=== PATIENT | male | born 1935 | race Caucasian/White ===

== ENCOUNTER 2018-06-05 05:08 | Inpatient (IN) | payer MEDICARE, MEDICAID ==
[~2018-06-05] VITALS: Ht 170.2 cm; Wt 92.9 kg
[2018-06-05] MEDS ORDERED: OMEP-110 PO (05:15)
[2018-06-05] MEDS ORDERED: MAALOX/HYOSCYAMINE/LIDOCAINE 45 ML BTL ONE (05:29)
[2018-06-05] MEDS ORDERED: FAMOTIDINE 20 MG/2 ML ONE (05:29)
[2018-06-05] MEDS ORDERED: FAMOTIDINE 20 MG/2 ML IVP ONE (05:30)
[2018-06-05] MEDS ORDERED: SODIUM CHLORIDE FLUSH 10ML SYR IVF ONE (05:30)
[2018-06-05] MEDS ORDERED: MAALOX/HYOSCYAMINE/LIDOCAINE 45 ML BTL PO ONE (05:30)
[2018-06-05] MEDS ORDERED: HYDROmorphone 2 MG/ML, 1ML ONE (05:56)
[2018-06-05 05:57] LABS: BASOPHILS # (AUTO) 0.05 x10^3/uL (0-0.1); BASOPHILS % (AUTO) 0 % (0-1); EOSINOPHILS # (AUTO) 0.17 x10^3/uL (0-0.4); EOSINOPHILS % (AUTO) 1 % (1-7); LYMPHOCYTES # (AUTO) 2.67 x10^3/uL (1-3.4); LYMPHOCYTES % (AUTO) 22 % (22-44); MD NO; MEAN CORPUSCULAR HEMOGLOBIN 24.1 pg (27.5-34.5); MEAN CORPUSCULAR HGB CONC 32.3 g/dL (33.2-36.2); MEAN CORPUSCULAR VOLUME 74.8 fL (81-97); MEAN PLATELET VOLUME 10.3 fL (7.4-10.4); MONOCYTES # (AUTO) 0.69 x10^3/uL (0.2-0.8); MONOCYTES % (AUTO) 6 % (2-9); NEUTROPHILS # (AUTO) 8.55 x10^3/uL (1.8-6.8); NEUTROPHILS % (AUTO) 71 % (42-75); PLATELET COUNT 336 x10^3/uL (130-400); RED BLOOD COUNT 5.02 x10^6/uL (4.38-5.82); RED CELL DISTRIBUTION WIDTH 19.7 % (9.4-14.8)
[2018-06-05] MEDS ORDERED: HYDROmorphone 2 MG/ML, 1ML IVPush PRN (06:00)
[2018-06-05 06:10] LABS: ALANINE AMINOTRANSFERASE 18 U/L (12-78); ANION GAP 8 mmol/L (5-15); CHLORIDE 105 mmol/L (98-107); CREATININE 1.59 mg/dL (0.7-1.3)
[2018-06-05 06:12] LABS: ALKALINE PHOSPHATASE 75 U/L (45-117); BILIRUBIN,TOTAL 0.7 mg/dL (0.2-1.0); TOTAL PROTEIN 8.4 g/dL (6.4-8.2)
[2018-06-05] MEDS ORDERED: SODIUM CHLORIDE 0.9% 1,000 ML IV ONE (06:28)
[2018-06-05] MEDS ORDERED: LABETALOL 5MG/ML, 20ML IVPush STA (06:39)
[2018-06-05] MEDS ORDERED: LABETALOL 5MG/ML, 20ML ONE (06:58)
[2018-06-05 07:46] VITALS: BP 153/93
[2018-06-05] MEDS ORDERED: morphine SULFATE 10 MG/ML, 1ML IVPush PRN (08:00)
[2018-06-05] MEDS ORDERED: ONDANSETRON 2MG/ML, 2ML IVPush PRN (08:00)
[2018-06-05] MEDS ORDERED: ONDANSETRON ODT 4 MG PO PRN (08:00)
[2018-06-05] MEDS: SUCRALFATE 1 GM/10 ML UDC PO SCH ×4 (08:00→23:15)
[2018-06-05] MEDS: PANTOPRAZOLE 40 MG IV IVPush SCH ×2 (10:44→23:16)
[2018-06-05] MEDS: HEPARIN 5,000 UNITS/ML, 1ML SQ SCH ×2 (10:45→17:13)
[2018-06-05] MEDS: IRON SUCROSE COMPLEX 100MG/5ML IV SCH (13:18)
[2018-06-05 13:23] VITALS: BP 144/97
[2018-06-05] MEDS: SODIUM CHLORIDE 0.9% 1,000 ML IV SCH ×2 (14:06→21:17)
[2018-06-05] MEDS: ACETAMINOPHEN 325 MG TABLET PO PRN (15:29)
[2018-06-05 19:32] VITALS: BP 146/84
[2018-06-06] MEDS: HEPARIN 5,000 UNITS/ML, 1ML SQ SCH ×4 (00:45→23:25)
[2018-06-06 01:11] VITALS: BP 156/97
[2018-06-06 06:05] LABS: BASOPHILS # (AUTO) 0.04 x10^3/uL (0-0.1); BASOPHILS % (AUTO) 1 % (0-1); EOSINOPHILS # (AUTO) 0.47 x10^3/uL (0-0.4); EOSINOPHILS % (AUTO) 7 % (1-7); LYMPHOCYTES # (AUTO) 2.34 x10^3/uL (1-3.4); LYMPHOCYTES % (AUTO) 33 % (22-44); MD NO; MEAN CORPUSCULAR HEMOGLOBIN 24.7 pg (27.5-34.5); MEAN CORPUSCULAR HGB CONC 32.3 g/dL (33.2-36.2); MEAN CORPUSCULAR VOLUME 76.5 fL (81-97); MEAN PLATELET VOLUME 10.1 fL (7.4-10.4); MONOCYTES # (AUTO) 0.53 x10^3/uL (0.2-0.8); MONOCYTES % (AUTO) 8 % (2-9); NEUTROPHILS # (AUTO) 3.68 x10^3/uL (1.8-6.8); NEUTROPHILS % (AUTO) 52 % (42-75); PLATELET COUNT 255 x10^3/uL (130-400); RED BLOOD COUNT 3.91 x10^6/uL (4.38-5.82); RED CELL DISTRIBUTION WIDTH 19.5 % (9.4-14.8)
[2018-06-06 06:07] LABS: ALBUMIN 2.9 g/dL (3.4-5.0); ANION GAP 10 mmol/L (5-15); CALCIUM 7.3 mg/dL (8.5-10.1); CHLORIDE 111 mmol/L (98-107)
[2018-06-06 06:19] LABS: ALANINE AMINOTRANSFERASE 14 U/L (12-78); ALKALINE PHOSPHATASE 55 U/L (45-117); BILIRUBIN,TOTAL 0.6 mg/dL (0.2-1.0); CHOL/HDL RATIO 2.1; CHOLESTEROL, TOTAL 96 mg/dL (140-239); CREATININE 1.26 mg/dL (0.7-1.3); HDL CHOL % 47 % (26-37); HDL CHOLESTEROL (DIRECT) 45 mg/dL (40-60); LDL CHOLESTEROL,CALCULATED 33 mg/dL (54-169); LDL/HDL RATIO 0.7 (0.5-3.0); TOTAL PROTEIN 6.1 g/dL (6.4-8.2); TRIGLYCERIDES 90 mg/dL (50-200); VLDL CHOLESTEROL 18 mg/dL (0-25)
[2018-06-06] MEDS: SUCRALFATE 1 GM/10 ML UDC PO SCH ×4 (06:56→21:26)
[2018-06-06] MEDS: SODIUM CHLORIDE 0.9% 1,000 ML IV SCH (07:32)
[2018-06-06 07:59] VITALS: BP 165/94
[2018-06-06] MEDS: PANTOPRAZOLE 40 MG IV IVPush SCH ×2 (11:02→21:26)
[2018-06-06] MEDS: IRON SUCROSE COMPLEX 100MG/5ML IV SCH (11:02)
[2018-06-06 13:40] VITALS: BP 147/84
[2018-06-06 19:11] VITALS: BP 152/79
[2018-06-07 02:01] VITALS: BP 150/85
[2018-06-07 07:23] LABS: BASOPHILS # (AUTO) 0.12 x10^3/uL (0-0.1); BASOPHILS % (AUTO) 2 % (0-1); EOSINOPHILS # (AUTO) 0.33 x10^3/uL (0-0.4); EOSINOPHILS % (AUTO) 4 % (1-7); LYMPHOCYTES # (AUTO) 2.21 x10^3/uL (1-3.4); LYMPHOCYTES % (AUTO) 27 % (22-44); MD NO; MEAN CORPUSCULAR HEMOGLOBIN 24.2 pg (27.5-34.5); MEAN CORPUSCULAR HGB CONC 31.8 g/dL (33.2-36.2); MEAN CORPUSCULAR VOLUME 75.9 fL (81-97); MEAN PLATELET VOLUME 9.7 fL (7.4-10.4); MONOCYTES # (AUTO) 0.58 x10^3/uL (0.2-0.8); MONOCYTES % (AUTO) 7 % (2-9); NEUTROPHILS # (AUTO) 4.88 x10^3/uL (1.8-6.8); NEUTROPHILS % (AUTO) 60 % (42-75); PLATELET COUNT 251 x10^3/uL (130-400); RED BLOOD COUNT 3.79 x10^6/uL (4.38-5.82); RED CELL DISTRIBUTION WIDTH 19.5 % (9.4-14.8)
[2018-06-07 07:44] VITALS: BP 163/91
[2018-06-07 08:25] LABS: CULTURE INDICATED? NO; MICROSCOPIC NOT IND
[2018-06-07] MEDS: SUCRALFATE 1 GM/10 ML UDC PO SCH ×4 (08:31→19:16)
[2018-06-07] MEDS: HEPARIN 5,000 UNITS/ML, 1ML SQ SCH ×3 (08:31→23:28)
[2018-06-07] MEDS: IRON SUCROSE COMPLEX 100MG/5ML IV SCH (08:31)
[2018-06-07] MEDS: PANTOPRAZOLE 40 MG IV IVPush SCH (08:32)
[2018-06-07] MEDS: SODIUM CHLORIDE 0.9% 1,000 ML IV SCH ×2 (09:00→21:33)
[2018-06-07 15:49] VITALS: BP 174/95
[2018-06-07] MEDS: PANTOPROZOLE 40MG TABLET PO SCH (19:16)
[2018-06-07 19:53] VITALS: BP 175/92
[2018-06-07 21:00] VITALS: BP 186/76
[2018-06-07] MEDS ORDERED: hydrALAzine 20 MG/ML, 1ML IVPush PRN (21:30)
[2018-06-08] MEDS: ACETAMINOPHEN 325 MG TABLET PO PRN ×3 (02:14→11:51)
[2018-06-08 02:15] VITALS: BP 188/98
[2018-06-08] MEDS: hydrALAzine 20 MG/ML, 1ML IVPush PRN ×2 (02:40→14:11)
[2018-06-08 07:47] VITALS: BP 162/109
[2018-06-08] MEDS: SUCRALFATE 1 GM/10 ML UDC PO SCH ×4 (08:03→21:11)
[2018-06-08] MEDS: LISINOPRIL 20 MG TABLET PO SCH (08:04)
[2018-06-08] MEDS: PANTOPROZOLE 40MG TABLET PO SCH ×2 (08:04→21:11)
[2018-06-08] MEDS: HEPARIN 5,000 UNITS/ML, 1ML SQ SCH (08:04)
[2018-06-08 08:10] LABS: ALANINE AMINOTRANSFERASE 14 U/L (12-78); ALBUMIN 3.8 g/dL (3.4-5.0); ANION GAP 9 mmol/L (5-15); CALCIUM 8.7 mg/dL (8.5-10.1); CHLORIDE 110 mmol/L (98-107); CREATININE 1.28 mg/dL (0.7-1.3)
[2018-06-08 08:13] LABS: ALKALINE PHOSPHATASE 71 U/L (45-117); BILIRUBIN,TOTAL 0.5 mg/dL (0.2-1.0); TOTAL PROTEIN 7.7 g/dL (6.4-8.2)
[2018-06-08 08:18] LABS: HEMOGRAM NOTE RECHECKED; MEAN CORPUSCULAR HEMOGLOBIN 23.6 pg (27.5-34.5); MEAN CORPUSCULAR HGB CONC 31.1 g/dL (33.2-36.2); MEAN CORPUSCULAR VOLUME 75.9 fL (81-97); MEAN PLATELET VOLUME 10.1 fL (7.4-10.4); PLATELET COUNT 310 x10^3/uL (130-400); RED CELL DISTRIBUTION WIDTH 19.7 % (9.4-14.8)
[2018-06-08 08:28] LABS: MD YES
[2018-06-08 08:30] LABS: ANISOCYTOSIS 1+; BAND#(MANUAL) 0.19 x10^3/uL; BANDS%(MANUAL) 2 % (0-7); BASOS#(MANUAL) 0.09 x10^3/uL (0-0.1); BASOS% (MANUAL) 1 % (0-1); EOS#(MANUAL) 0.28 x10^3/uL (0.0-0.4); EOS% (MANUAL) 3 % (1-7); LYMPH#(MANUAL) 2.05 x10^3/uL (1-3.4); LYMPHS% (MANUAL) 22 % (22-44); MONOS#(MANUAL) 0.56 x10^3/uL (0.3-2.7); MONOS% (MANUAL) 6 % (2-9); SEG#(MANUAL) 6.14 x10^3/uL (1.8-6.8); SEGS% (MANUAL) 66 % (42-75)
[2018-06-08 08:31] LABS: <PLATELET ESTIMATE> ADEQUATE; LARGE PLATELETS 1+; POLYCHROMASIA 1+
[2018-06-08 11:45] VITALS: BP 140/90
[2018-06-08 13:54] VITALS: BP 182/92
[2018-06-08] MEDS ORDERED: METOCLOPRAMIDE 5 MG/ML, 2ML IVPush ONE (16:30)
[2018-06-08] MEDS ORDERED: DIPHENHYDRAMINE 50 MG/ML, 1ML IVPush ONE (16:30)
[2018-06-08] MEDS: FERROUS SULFATE 325 MG TABLET PO SCH (16:31)
[2018-06-08] MEDS: ASCORBIC ACID 500 MG TABLET PO SCH (16:31)
[2018-06-08 19:45] VITALS: BP 163/99
[2018-06-09 02:45] VITALS: BP 142/95
[2018-06-09 07:38] VITALS: BP 165/101
[2018-06-09] MEDS: ASCORBIC ACID 500 MG TABLET PO SCH ×2 (08:00→17:00)
[2018-06-09] MEDS: SUCRALFATE 1 GM/10 ML UDC PO SCH ×4 (10:17→21:46)
[2018-06-09] MEDS: LISINOPRIL 20 MG TABLET PO SCH (10:17)
[2018-06-09] MEDS: PANTOPROZOLE 40MG TABLET PO SCH ×2 (10:17→21:46)
[2018-06-09] MEDS: FERROUS SULFATE 325 MG TABLET PO SCH ×2 (10:18→17:00)
[2018-06-09 13:35] VITALS: BP 142/99
[2018-06-09 19:37] VITALS: BP 134/92
[2018-06-10 03:34] VITALS: BP 171/98
[2018-06-10 08:25] VITALS: BP 164/93
[2018-06-10] MEDS: ASCORBIC ACID 500 MG TABLET PO SCH ×2 (08:34→17:25)
[2018-06-10] MEDS: SUCRALFATE 1 GM/10 ML UDC PO SCH ×4 (08:34→21:22)
[2018-06-10] MEDS: PANTOPROZOLE 40MG TABLET PO SCH ×2 (08:35→21:22)
[2018-06-10] MEDS: LISINOPRIL 20 MG TABLET PO SCH (08:35)
[2018-06-10] MEDS: FERROUS SULFATE 325 MG TABLET PO SCH ×2 (08:35→17:25)
[2018-06-10] MEDS: ACETAMINOPHEN 325 MG TABLET PO PRN (08:35)
[2018-06-10] MEDS: AMLODIPINE 5 MG TABLET PO SCH (08:35)
[2018-06-10 13:40] VITALS: BP 160/103
[2018-06-10 21:14] VITALS: BP 133/81
[2018-06-11 01:48] VITALS: BP 131/69
[2018-06-11 07:40] VITALS: BP 162/101
[2018-06-11] MEDS: SUCRALFATE 1 GM/10 ML UDC PO SCH ×4 (07:59→20:35)
[2018-06-11] MEDS: ASCORBIC ACID 500 MG TABLET PO SCH ×2 (08:01→16:52)
[2018-06-11] MEDS: PANTOPROZOLE 40MG TABLET PO SCH ×2 (08:01→20:35)
[2018-06-11] MEDS: LISINOPRIL 20 MG TABLET PO SCH (08:01)
[2018-06-11] MEDS: AMLODIPINE 5 MG TABLET PO SCH (08:01)
[2018-06-11] MEDS: FERROUS SULFATE 325 MG TABLET PO SCH ×2 (08:01→16:52)
[2018-06-11 13:15] VITALS: BP 123/82
[2018-06-11 19:38] VITALS: BP 131/83
[2018-06-12 02:08] VITALS: BP 138/81
[2018-06-12 06:40] VITALS: BP 144/81
[2018-06-12] MEDS: SUCRALFATE 1 GM/10 ML UDC PO SCH ×4 (08:30→20:23)
[2018-06-12] MEDS: LISINOPRIL 20 MG TABLET PO SCH (08:30)
[2018-06-12] MEDS: ASCORBIC ACID 500 MG TABLET PO SCH ×2 (08:31→16:08)
[2018-06-12] MEDS: FERROUS SULFATE 325 MG TABLET PO SCH ×2 (08:31→16:08)
[2018-06-12] MEDS: PANTOPROZOLE 40MG TABLET PO SCH ×2 (08:31→20:23)
[2018-06-12] MEDS: AMLODIPINE 5 MG TABLET PO SCH (08:31)
[2018-06-12 12:22] VITALS: BP 150/86
[2018-06-12 20:05] VITALS: BP 139/89
[2018-06-13 01:01] VITALS: BP 138/79
[2018-06-13 06:38] VITALS: BP 129/77
[2018-06-13] MEDS: SUCRALFATE 1 GM/10 ML UDC PO SCH ×4 (06:49→22:14)
[2018-06-13] MEDS: AMLODIPINE 5 MG TABLET PO SCH (08:31)
[2018-06-13] MEDS: PANTOPROZOLE 40MG TABLET PO SCH ×2 (08:31→22:14)
[2018-06-13] MEDS: FERROUS SULFATE 325 MG TABLET PO SCH ×2 (08:31→17:09)
[2018-06-13] MEDS: ASCORBIC ACID 500 MG TABLET PO SCH ×2 (08:31→17:09)
[2018-06-13] MEDS: LISINOPRIL 20 MG TABLET PO SCH (08:31)
[2018-06-13] MEDS: ACETAMINOPHEN 325 MG TABLET PO PRN (10:36)
[2018-06-13 12:32] VITALS: BP 130/87
[2018-06-13 20:35] VITALS: BP 123/74
[2018-06-14 00:15] VITALS: BP 132/85
[2018-06-14 05:09] LABS: ANION GAP 8 mmol/L (5-15); CALCIUM 8.2 mg/dL (8.5-10.1); CHLORIDE 109 mmol/L (98-107); CREATININE 1.41 mg/dL (0.7-1.3)
[2018-06-14 05:48] LABS: MEAN CORPUSCULAR HEMOGLOBIN 25.1 pg (27.5-34.5); MEAN CORPUSCULAR HGB CONC 32.1 g/dL (33.2-36.2); MEAN CORPUSCULAR VOLUME 78.1 fL (81-97); MEAN PLATELET VOLUME 10.7 fL (7.4-10.4); PLATELET COUNT 277 x10^3/uL (130-400); RED BLOOD COUNT 4.39 x10^6/uL (4.38-5.82); RED CELL DISTRIBUTION WIDTH 22.1 % (9.4-14.8)
[2018-06-14 05:52] LABS: BASOPHILS # (AUTO) 0.05 x10^3/uL (0-0.1); BASOPHILS % (AUTO) 1 % (0-1); EOSINOPHILS # (AUTO) 0.38 x10^3/uL (0-0.4); EOSINOPHILS % (AUTO) 4 % (1-7); LYMPHOCYTES # (AUTO) 2.43 x10^3/uL (1-3.4); LYMPHOCYTES % (AUTO) 28 % (22-44); MD SCAN; MONOCYTES # (AUTO) 0.72 x10^3/uL (0.2-0.8); MONOCYTES % (AUTO) 8 % (2-9); NEUTROPHILS # (AUTO) 5.09 x10^3/uL (1.8-6.8); NEUTROPHILS % (AUTO) 59 % (42-75)
[2018-06-14 09:30] VITALS: BP 120/84
[2018-06-14] MEDS: SUCRALFATE 1 GM/10 ML UDC PO SCH ×4 (10:05→22:17)
[2018-06-14] MEDS: LISINOPRIL 20 MG TABLET PO SCH (10:05)
[2018-06-14] MEDS: ASCORBIC ACID 500 MG TABLET PO SCH ×2 (10:06→17:35)
[2018-06-14] MEDS: AMLODIPINE 5 MG TABLET PO SCH (10:06)
[2018-06-14] MEDS: PANTOPROZOLE 40MG TABLET PO SCH ×2 (10:06→22:17)
[2018-06-14] MEDS: FERROUS SULFATE 325 MG TABLET PO SCH ×2 (10:06→17:35)
[2018-06-14 14:30] VITALS: BP 121/84
[2018-06-14 21:08] VITALS: BP 113/75
[2018-06-15 05:31] LABS: ANION GAP 10 mmol/L (5-15); CALCIUM 8.3 mg/dL (8.5-10.1); CHLORIDE 111 mmol/L (98-107)
[2018-06-15 05:32] LABS: CREATININE 1.37 mg/dL (0.7-1.3)
[2018-06-15] MEDS: SUCRALFATE 1 GM/10 ML UDC PO SCH ×4 (06:59→20:19)
[2018-06-15 07:04] VITALS: BP 126/78
[2018-06-15 09:33] VITALS: BP 127/80
[2018-06-15] MEDS: FERROUS SULFATE 325 MG TABLET PO SCH ×2 (09:36→16:47)
[2018-06-15] MEDS: ASCORBIC ACID 500 MG TABLET PO SCH ×2 (09:37→16:46)
[2018-06-15] MEDS: PANTOPROZOLE 40MG TABLET PO SCH ×2 (09:37→20:19)
[2018-06-15] MEDS: AMLODIPINE 5 MG TABLET PO SCH (09:37)
[2018-06-15] MEDS: LISINOPRIL 20 MG TABLET PO SCH (09:37)
[2018-06-15 14:14] VITALS: BP 119/81
[2018-06-15] MEDS: ACETAMINOPHEN 325 MG TABLET PO PRN (14:42)
[2018-06-15 18:49] VITALS: BP 142/86
[2018-06-16 02:59] VITALS: BP 122/75
[2018-06-16 07:52] VITALS: BP 131/78
[2018-06-16] MEDS: FERROUS SULFATE 325 MG TABLET PO SCH (09:04)
[2018-06-16] MEDS: AMLODIPINE 5 MG TABLET PO SCH (09:04)
[2018-06-16] MEDS: LISINOPRIL 20 MG TABLET PO SCH (09:05)
[2018-06-16] MEDS: PANTOPROZOLE 40MG TABLET PO SCH (09:05)
[2018-06-16] MEDS: SUCRALFATE 1 GM/10 ML UDC PO SCH ×2 (09:05→12:26)
[2018-06-16] MEDS: ASCORBIC ACID 500 MG TABLET PO SCH (09:05)
[2018-06-16 14:30] VITALS: BP 121/78
[2018-06-16] MEDS ORDERED: ASCO500T6 PO (17:03)
[2018-06-16] MEDS ORDERED: LISI-170 PO (17:03)
[2018-06-16] MEDS ORDERED: AMLO5TAB7 PO (17:03)
[2018-06-16] MEDS ORDERED: ACET325T14 PO (17:03)
[2018-06-16] MEDS ORDERED: PANT40TA5 PO (17:03)
[2018-06-16] MEDS ORDERED: SUCR1ORA5 PO (17:03)
[2018-06-16] MEDS ORDERED: FERR-51 PO (17:03)
== END 2018-06-16 16:03 | disposition left against medical advice (07) | DRG 682 ==
LOC: ED 07:17 → EDIP 07:24 → 3NE 07:43
PROVIDERS: ADMIT Hospitalist; ATTEND Hospitalist
DX: N17.0 Acute kidney failure with tubular necrosis (principal); G93.40 Encephalopathy, unspecified; K25.9 Gastric ulcer, unspecified as acute or chronic, without hemorrhage or perforation; G89.29 Other chronic pain; I10 Essential (primary) hypertension; K21.9 Gastro-esophageal reflux disease without esophagitis; F09 Unspecified mental disorder due to known physiological condition; F03.90 Unspecified dementia, unspecified severity, without behavioral disturbance, psychotic disturbance, mood disturbance, and anxiety; D50.9 Iron deficiency anemia, unspecified; F12.90 Cannabis use, unspecified, uncomplicated; D72.829 Elevated white blood cell count, unspecified; E86.0 Dehydration; Z90.49 Acquired absence of other specified parts of digestive tract; Z53.21 Procedure and treatment not carried out due to patient leaving prior to being seen by health care provider; Z90.89 Acquired absence of other organs; Z87.891 Personal history of nicotine dependence; Z86.73 Personal history of transient ischemic attack (TIA), and cerebral infarction without residual deficits; Z87.11 Personal history of peptic ulcer disease
CPT/HCPCS: 36415; 70450; 74021; 76700; 80048; 80053; 80061; 81003; 82728; 83540; 83550; 83690; 83735; 84100; 84443; 85025; 86677; 93005; 96374; 96375; 99285; G0378; J1170; J1644; J1756; 92523-GN; C9113; G0515-GN; J0360; J1200; J2765; J7030; S0028

== ENCOUNTER 2018-07-13 14:13 | Inpatient (IN) | payer MEDICARE, MEDICAID ==
[~2018-07-13] VITALS: Ht 170.2 cm; Wt 90.4 kg
[~2018-07-13 14:13] MED LIST: ACET325T14 PO; AMLO5TAB7 PO; ASCO500T6 PO; FERR-51 PO; LISI-170 PO; OMEP-110 PO; PANT40TA5 PO; SUCR1ORA5 PO
[2018-07-13] MEDS ORDERED: SODIUM CHLORIDE FLUSH 10ML SYR IVF ONE (15:00)
[2018-07-13 15:43] LABS: MEAN CORPUSCULAR HEMOGLOBIN 25.8 pg (27.5-34.5); MEAN CORPUSCULAR HGB CONC 32.1 g/dL (33.2-36.2); MEAN CORPUSCULAR VOLUME 80.6 fL (81-97); MEAN PLATELET VOLUME 10.1 fL (7.4-10.4); PLATELET COUNT 333 x10^3/uL (130-400); RED BLOOD COUNT 4.86 x10^6/uL (4.38-5.82); RED CELL DISTRIBUTION WIDTH 22.4 % (9.4-14.8)
[2018-07-13 15:53] LABS: ALANINE AMINOTRANSFERASE 19 U/L (12-78); ALBUMIN 3.8 g/dL (3.4-5.0); ANION GAP 9 mmol/L (5-15); CALCIUM 8.8 mg/dL (8.5-10.1); CHLORIDE 110 mmol/L (98-107); CREATININE 1.88 mg/dL (0.7-1.3)
[2018-07-13 15:55] LABS: ALKALINE PHOSPHATASE 70 U/L (45-117); BILIRUBIN,TOTAL 0.5 mg/dL (0.2-1.0); TOTAL PROTEIN 7.7 g/dL (6.4-8.2)
[2018-07-13 16:07] LABS: BASOPHILS # (AUTO) 0.05 x10^3/uL (0-0.1); BASOPHILS % (AUTO) 0 % (0-1); EOSINOPHILS # (AUTO) 0.09 x10^3/uL (0-0.4); EOSINOPHILS % (AUTO) 1 % (1-7); LYMPHOCYTES # (AUTO) 2.18 x10^3/uL (1-3.4); LYMPHOCYTES % (AUTO) 19 % (22-44); MD SCAN; MONOCYTES # (AUTO) 0.56 x10^3/uL (0.2-0.8); MONOCYTES % (AUTO) 5 % (2-9); NEUTROPHILS # (AUTO) 8.58 x10^3/uL (1.8-6.8); NEUTROPHILS % (AUTO) 75 % (42-75)
[2018-07-13] MEDS ORDERED: SUCR1TAB PO (16:16)
[2018-07-13] MEDS ORDERED: MAALOX/HYOSCYAMINE/LIDOCAINE 45 ML BTL PO ONE (16:30)
[2018-07-13] MEDS ORDERED: MAALOX/HYOSCYAMINE/LIDOCAINE 45 ML BTL ONE (16:51)
[2018-07-13 17:24] LABS: MICROSCOPIC NOT IND
[2018-07-13 17:26] LABS: CULTURE INDICATED? NO
[2018-07-13] MEDS ORDERED: CIPROFLOXACIN/PMX 400MG/200ML 200 ML ONE (19:20)
[2018-07-13] MEDS ORDERED: ONDANSETRON 2MG/ML, 2ML ONE (19:20)
[2018-07-13] MEDS ORDERED: METRONIDAZOLE PMX 500MG/100ML 100 ML ONE (19:20)
[2018-07-13] MEDS ORDERED: MORPHINE SULFATE 4 MG/ML, 1ML ONE ×2 (19:21→20:22)
[2018-07-13] MEDS ORDERED: ONDANSETRON 2MG/ML, 2ML IVPush ONE (19:30)
[2018-07-13] MEDS ORDERED: METRONIDAZOLE PMX 500MG/100ML 100 ML IV ONE (19:30)
[2018-07-13] MEDS ORDERED: MORPHINE SULFATE 4 MG/ML, 1ML IVPush PRN (19:30)
[2018-07-13] MEDS ORDERED: CIPROFLOXACIN/PMX 400MG/200ML 200 ML IV ONE (19:30)
[2018-07-13] MEDS ORDERED: hydrALAzine 20 MG/ML, 1ML IVPush PRN (20:00)
[2018-07-13] MEDS ORDERED: PHARMACY MAY ADJ FOR RENAL FX MC PRN (20:00)
[2018-07-13] MEDS ORDERED: ONDANSETRON ODT 4 MG PO PRN (20:00)
[2018-07-13] MEDS ORDERED: DOCUSATE 100 MG CAPSULE PO PRN (20:00)
[2018-07-13] MEDS: SODIUM CHLORIDE 0.9% 1,000 ML IV SCH (21:07)
[2018-07-13 21:30] VITALS: BP 157/94
[2018-07-13] MEDS: TEMAZEPAM 15 MG CAPSULE PO PRN (21:50)
[2018-07-13] MEDS: SIMETHICONE 125 MG CHEW TAB PO SCH (21:50)
[2018-07-13] MEDS: CIPROFLOXACIN/PMX 400MG/200ML 200 ML IV SCH (21:50)
[2018-07-14] MEDS: METRONIDAZOLE PMX 500MG/100ML 100 ML IV SCH ×4 (01:48→21:16)
[2018-07-14 03:21] VITALS: BP 153/92
[2018-07-14 06:13] LABS: MEAN CORPUSCULAR HEMOGLOBIN 26.6 pg (27.5-34.5); MEAN CORPUSCULAR VOLUME 80.7 fL (81-97); MEAN PLATELET VOLUME 9.6 fL (7.4-10.4); PLATELET COUNT 270 x10^3/uL (130-400); RED BLOOD COUNT 4.22 x10^6/uL (4.38-5.82); RED CELL DISTRIBUTION WIDTH 22.1 % (9.4-14.8)
[2018-07-14 06:44] LABS: BASOPHILS # (AUTO) 0.04 x10^3/uL (0-0.1); BASOPHILS % (AUTO) 1 % (0-1); EOSINOPHILS % (AUTO) 5 % (1-7); LYMPHOCYTES # (AUTO) 2.11 x10^3/uL (1-3.4); LYMPHOCYTES % (AUTO) 27 % (22-44); MD SCAN; MONOCYTES # (AUTO) 0.65 x10^3/uL (0.2-0.8); MONOCYTES % (AUTO) 8 % (2-9); NEUTROPHILS # (AUTO) 4.56 x10^3/uL (1.8-6.8); NEUTROPHILS % (AUTO) 59 % (42-75)
[2018-07-14 07:24] VITALS: BP 150/88
[2018-07-14] MEDS ORDERED: CIPROFLOXACIN/PMX 400MG/200ML 200 ML IV SCH (08:00)
[2018-07-14] MEDS: SIMETHICONE 125 MG CHEW TAB PO SCH ×4 (08:19→20:27)
[2018-07-14] MEDS: SODIUM CHLORIDE 0.9% 1,000 ML IV SCH ×2 (08:19→20:26)
[2018-07-14 10:32] LABS: ANION GAP 6 mmol/L (5-15); CALCIUM 8.4 mg/dL (8.5-10.1); CHLORIDE 110 mmol/L (98-107); CREATININE 1.52 mg/dL (0.7-1.3)
[2018-07-14] MEDS: CIPROFLOXACIN/PMX 400MG/200ML 200 ML IV SCH ×2 (10:32→22:23)
[2018-07-14] MEDS ORDERED: GOLYTELY 4,000ML ORAL.SOL PO ONE (14:00)
[2018-07-14 14:22] VITALS: BP_SYST 148; BP_SYST 150; BP_DIAS 71; BP_DIAS 88
[2018-07-14] MEDS: PANTOPROZOLE 40MG TABLET PO SCH (16:04)
[2018-07-14] MEDS ORDERED: GOLYTELY 4,000ML ORAL.SOL ONE (18:23)
[2018-07-14 19:44] VITALS: BP 136/71
[2018-07-14] MEDS: TEMAZEPAM 15 MG CAPSULE PO PRN (23:19)
[2018-07-15 00:14] VITALS: BP 133/79
[2018-07-15] MEDS: METRONIDAZOLE PMX 500MG/100ML 100 ML IV SCH ×4 (02:39→21:00)
[2018-07-15] MEDS: PANTOPROZOLE 40MG TABLET PO SCH ×2 (03:32→17:37)
[2018-07-15 05:29] LABS: MEAN CORPUSCULAR VOLUME 81.3 fL (81-97); MEAN PLATELET VOLUME 9.4 fL (7.4-10.4); PLATELET COUNT 235 x10^3/uL (130-400); RED BLOOD COUNT 4.07 x10^6/uL (4.38-5.82); RED CELL DISTRIBUTION WIDTH 22.1 % (9.4-14.8)
[2018-07-15 05:43] LABS: CHLORIDE 111 mmol/L (98-107)
[2018-07-15 05:45] LABS: ANION GAP 7 mmol/L (5-15); CALCIUM 7.7 mg/dL (8.5-10.1); CREATININE 1.14 mg/dL (0.7-1.3)
[2018-07-15 06:03] LABS: BASOPHILS # (AUTO) 0.03 x10^3/uL (0-0.1); BASOPHILS % (AUTO) 1 % (0-1); EOSINOPHILS # (AUTO) 0.37 x10^3/uL (0-0.4); EOSINOPHILS % (AUTO) 6 % (1-7); LYMPHOCYTES # (AUTO) 2.19 x10^3/uL (1-3.4); LYMPHOCYTES % (AUTO) 35 % (22-44); MD SCAN; MONOCYTES % (AUTO) 8 % (2-9); NEUTROPHILS # (AUTO) 3.25 x10^3/uL (1.8-6.8); NEUTROPHILS % (AUTO) 51 % (42-75)
[2018-07-15 07:26] VITALS: BP 166/98
[2018-07-15] MEDS: SIMETHICONE 125 MG CHEW TAB PO SCH ×4 (07:55→21:00)
[2018-07-15] MEDS: AMLODIPINE 5 MG TABLET PO SCH (07:56)
[2018-07-15] MEDS: CIPROFLOXACIN/PMX 400MG/200ML 200 ML IV SCH ×2 (10:24→22:20)
[2018-07-15] MEDS ORDERED: GOLYTELY 4,000ML ORAL.SOL PO ONE ×2 (10:30→19:30)
[2018-07-15 14:27] VITALS: BP 129/88
[2018-07-15] MEDS: SODIUM CHLORIDE 0.9% 1,000 ML IV SCH (14:28)
[2018-07-15 20:01] VITALS: BP 159/99
[2018-07-16] MEDS: METRONIDAZOLE PMX 500MG/100ML 100 ML IV SCH (03:07)
[2018-07-16] MEDS: PANTOPROZOLE 40MG TABLET PO SCH ×2 (04:58→17:13)
[2018-07-16 05:00] VITALS: BP 153/83
[2018-07-16 06:38] LABS: MEAN CORPUSCULAR HEMOGLOBIN 26.4 pg (27.5-34.5); MEAN CORPUSCULAR HGB CONC 32.5 g/dL (33.2-36.2); MEAN PLATELET VOLUME 9.3 fL (7.4-10.4); PLATELET COUNT 268 x10^3/uL (130-400); RED BLOOD COUNT 4.37 x10^6/uL (4.38-5.82); RED CELL DISTRIBUTION WIDTH 22.1 % (9.4-14.8)
[2018-07-16 06:46] LABS: ANION GAP 10 mmol/L (5-15); CALCIUM 7.9 mg/dL (8.5-10.1); CHLORIDE 110 mmol/L (98-107); CREATININE 1.23 mg/dL (0.7-1.3)
[2018-07-16 06:59] VITALS: BP 156/92
[2018-07-16] MEDS: SIMETHICONE 125 MG CHEW TAB PO SCH ×4 (07:00→20:32)
[2018-07-16 07:22] LABS: BASOPHILS # (AUTO) 0.03 x10^3/uL (0-0.1); BASOPHILS % (AUTO) 0 % (0-1); EOSINOPHILS # (AUTO) 0.23 x10^3/uL (0-0.4); EOSINOPHILS % (AUTO) 4 % (1-7); LYMPHOCYTES # (AUTO) 1.96 x10^3/uL (1-3.4); LYMPHOCYTES % (AUTO) 30 % (22-44); MD SCAN; MONOCYTES # (AUTO) 0.51 x10^3/uL (0.2-0.8); MONOCYTES % (AUTO) 8 % (2-9); NEUTROPHILS # (AUTO) 3.77 x10^3/uL (1.8-6.8); NEUTROPHILS % (AUTO) 58 % (42-75)
[2018-07-16] MEDS ORDERED: FENTANYL PF 100 MCG/2ML ONE (09:46)
[2018-07-16] MEDS ORDERED: MIDAZOLAM 1 MG/ML, 2ML ONE (09:46)
[2018-07-16] MEDS ORDERED: PROPOFOL 10 MG/ML, 20ML ONE (09:58)
[2018-07-16] MEDS ORDERED: LABETALOL 5MG/ML, 20ML IV PRN (11:00)
[2018-07-16] MEDS ORDERED: HALOPERIDOL 5 MG/ML IV PRN (11:00)
[2018-07-16] MEDS ORDERED: ACETAMINOPHEN 325 MG TABLET PO PRN (11:00)
[2018-07-16] MEDS ORDERED: OXYcodone 5 MG/5 ML ORAL.SOL UDC PO PRN (11:00)
[2018-07-16] MEDS ORDERED: hydrALAzine 20 MG/ML, 1ML IV PRN (11:00)
[2018-07-16] MEDS ORDERED: MEPERIDINE/PF 25MG/0.5ML IVPush PRN (11:00)
[2018-07-16] MEDS ORDERED: HYDROmorphone 1 MG/ML, 1ML IV PRN (11:00)
[2018-07-16] MEDS ORDERED: FENTANYL PF 100 MCG/2ML IV PRN (11:00)
[2018-07-16] MEDS: AMLODIPINE 5 MG TABLET PO SCH (12:58)
[2018-07-16 13:13] VITALS: BP 147/98
[2018-07-16 19:56] VITALS: BP 142/72
[2018-07-17 01:22] VITALS: BP 144/78
[2018-07-17] MEDS: PANTOPROZOLE 40MG TABLET PO SCH (06:11)
[2018-07-17 08:07] VITALS: BP 166/73
[2018-07-17] MEDS: SIMETHICONE 125 MG CHEW TAB PO SCH ×2 (08:32→12:12)
[2018-07-17] MEDS: AMLODIPINE 5 MG TABLET PO SCH (08:32)
[2018-07-17] MEDS ORDERED: AMLO5TAB7 PO (13:08)
[2018-07-17] MEDS ORDERED: LISI-170 PO (13:08)
[2018-07-17] MEDS ORDERED: FERR-51 PO (13:08)
[2018-07-17] MEDS ORDERED: PANT40TA5 PO (13:08)
== END 2018-07-17 14:50 | disposition home or self-care (01) | DRG 383 ==
LOC: ED 17:20 → EDIP 19:11 → 3NE 20:30
PROVIDERS: ADMIT Internal Medicine; ATTEND Internal Medicine
PROC: 0DB68ZX Excision of Stomach, Via Natural or Artificial Opening Endoscopic, Diagnostic (ICD-10-PCS; 2018-07-16)
PROC: 0DJD8ZZ Inspection of Lower Intestinal Tract, Via Natural or Artificial Opening Endoscopic (ICD-10-PCS; 2018-07-16)
PROC: 0DB98ZX Excision of Duodenum, Via Natural or Artificial Opening Endoscopic, Diagnostic (ICD-10-PCS; principal; 2018-07-16 10:00)
DX: K26.9 Duodenal ulcer, unspecified as acute or chronic, without hemorrhage or perforation (principal); N17.0 Acute kidney failure with tubular necrosis; Z86.010 Personal history of colon polyps; D50.9 Iron deficiency anemia, unspecified; D72.829 Elevated white blood cell count, unspecified; G89.29 Other chronic pain; I12.9 Hypertensive chronic kidney disease with stage 1 through stage 4 chronic kidney disease, or unspecified chronic kidney disease; F12.90 Cannabis use, unspecified, uncomplicated; J84.10 Pulmonary fibrosis, unspecified; Z96.641 Presence of right artificial hip joint; K57.30 Diverticulosis of large intestine without perforation or abscess without bleeding; K64.9 Unspecified hemorrhoids; N18.9 Chronic kidney disease, unspecified; Z86.718 Personal history of other venous thrombosis and embolism; Z87.11 Personal history of peptic ulcer disease; Z91.19 Patient's noncompliance with other medical treatment and regimen; Z91.14 Patient's other noncompliance with medication regimen; Z87.19 Personal history of other diseases of the digestive system
CPT/HCPCS: 36415; 74022; 74176; 80048; 80053; 81003; 83690; 83735; 85025; 88305; 96374; G0378; J0744; J2250; J2405; J2704; J3010; J7030

== ENCOUNTER 2018-07-23 09:58 | Emergency (ER) | payer MEDICARE, MEDICAID ==
[~2018-07-23] VITALS: Ht 170.2 cm; Wt 83.0 kg
[~2018-07-23 09:58] MED LIST changes: +SUCR1TAB PO
[2018-07-23] MEDS ORDERED: MAALOX/HYOSCYAMINE/LIDOCAINE 45 ML BTL ONE (10:11)
[2018-07-23] MEDS ORDERED: MAALOX/HYOSCYAMINE/LIDOCAINE 45 ML BTL PO ONE (10:30)
[2018-07-23 11:00] VITALS: BP 138/87
== END 2018-07-23 11:09 | disposition home or self-care (01) ==
LOC: ED 11:03
DX: R10.33 Periumbilical pain (principal); R10.13 Epigastric pain; K21.9 Gastro-esophageal reflux disease without esophagitis; I10 Essential (primary) hypertension; Z87.891 Personal history of nicotine dependence
CPT/HCPCS: 93005; 99283

== ENCOUNTER 2018-07-28 02:18 | Emergency (ER) | payer MEDICARE, MEDICAID ==
[~2018-07-28] VITALS: Ht 170.2 cm; Wt 80.0 kg
[2018-07-28] MEDS ORDERED: MORPHINE SULFATE 4 MG/ML, 1ML ONE ×2 (03:44→05:00)
[2018-07-28] MEDS ORDERED: ONDANSETRON 2MG/ML, 2ML ONE (03:44)
[2018-07-28] MEDS: MORPHINE SULFATE 4 MG/ML, 1ML IVPush PRN ×2 (03:48→05:02)
[2018-07-28] MEDS ORDERED: ONDANSETRON 2MG/ML, 2ML IVPush ONE (04:00)
[2018-07-28 04:08] LABS: BASOPHILS # (AUTO) 0.08 x10^3/uL (0-0.1); BASOPHILS % (AUTO) 1 % (0-1); EOSINOPHILS # (AUTO) 0.25 x10^3/uL (0-0.4); EOSINOPHILS % (AUTO) 3 % (1-7); LYMPHOCYTES # (AUTO) 2.44 x10^3/uL (1-3.4); LYMPHOCYTES % (AUTO) 26 % (22-44); MD NO; MEAN CORPUSCULAR HEMOGLOBIN 26.7 pg (27.5-34.5); MEAN CORPUSCULAR HGB CONC 32.5 g/dL (33.2-36.2); MEAN CORPUSCULAR VOLUME 81.9 fL (81-97); MEAN PLATELET VOLUME 10.5 fL (7.4-10.4); MONOCYTES # (AUTO) 0.66 x10^3/uL (0.2-0.8); MONOCYTES % (AUTO) 7 % (2-9); NEUTROPHILS # (AUTO) 6.09 x10^3/uL (1.8-6.8); NEUTROPHILS % (AUTO) 64 % (42-75); PLATELET COUNT 321 x10^3/uL (130-400); RED BLOOD COUNT 4.64 x10^6/uL (4.38-5.82); RED CELL DISTRIBUTION WIDTH 21.3 % (9.4-14.8)
[2018-07-28 04:13] LABS: ALANINE AMINOTRANSFERASE 17 U/L (12-78); ALBUMIN 3.7 g/dL (3.4-5.0); ANION GAP 9 mmol/L (5-15); CHLORIDE 107 mmol/L (98-107); CREATININE 1.27 mg/dL (0.7-1.3)
[2018-07-28 04:15] LABS: ALKALINE PHOSPHATASE 60 U/L (45-117); BILIRUBIN,TOTAL 0.4 mg/dL (0.2-1.0); TOTAL PROTEIN 7.5 g/dL (6.4-8.2)
[2018-07-28 04:30] LABS: MICROSCOPIC NOT IND
[2018-07-28 04:31] LABS: CULTURE INDICATED? NO
[2018-07-28 04:58] VITALS: BP 163/118
[2018-07-28] MEDS ORDERED: MAALOX/HYOSCYAMINE/LIDOCAINE 45 ML BTL PO ONE (05:30)
[2018-07-28] MEDS ORDERED: MAALOX/HYOSCYAMINE/LIDOCAINE 45 ML BTL ONE (05:48)
== END 2018-07-28 06:04 | disposition home or self-care (01) ==
LOC: ED 03:42
DX: K26.7 Chronic duodenal ulcer without hemorrhage or perforation (principal)
CPT/HCPCS: 36415; 80053; 81003; 83690; 85025; 96374; 96375; 96376; 99284; J2405

== ENCOUNTER 2018-07-28 12:54 | Inpatient (IN) | payer MEDICARE, MEDICAID ==
[~2018-07-28] VITALS: Ht 170.2 cm; Wt 88.0 kg
[2018-07-28] MEDS ORDERED: MAALOX/HYOSCYAMINE/LIDOCAINE 45 ML BTL ONE (13:59)
[2018-07-28] MEDS ORDERED: MAALOX/HYOSCYAMINE/LIDOCAINE 45 ML BTL PO ONE (14:00)
[2018-07-28] MEDS ORDERED: PANTOPRAZOLE 40 MG IV ONE (17:43)
[2018-07-28 17:58] LABS: BASOPHILS # (AUTO) 0.15 x10^3/uL (0-0.1); BASOPHILS % (AUTO) 2 % (0-1); EOSINOPHILS # (AUTO) 0.26 x10^3/uL (0-0.4); EOSINOPHILS % (AUTO) 3 % (1-7); LYMPHOCYTES # (AUTO) 2.62 x10^3/uL (1-3.4); LYMPHOCYTES % (AUTO) 29 % (22-44); MD NO; MEAN CORPUSCULAR HEMOGLOBIN 26.9 pg (27.5-34.5); MEAN CORPUSCULAR HGB CONC 32.8 g/dL (33.2-36.2); MEAN PLATELET VOLUME 9.9 fL (7.4-10.4); MONOCYTES # (AUTO) 0.67 x10^3/uL (0.2-0.8); MONOCYTES % (AUTO) 8 % (2-9); NEUTROPHILS # (AUTO) 5.24 x10^3/uL (1.8-6.8); NEUTROPHILS % (AUTO) 59 % (42-75); PLATELET COUNT 305 x10^3/uL (130-400); RED BLOOD COUNT 4.42 x10^6/uL (4.38-5.82); RED CELL DISTRIBUTION WIDTH 21.4 % (9.4-14.8)
[2018-07-28] MEDS ORDERED: PANTOPRAZOLE 40 MG IV IVP ONE (18:00)
[2018-07-28] MEDS ORDERED: SODIUM CHLORIDE FLUSH 10ML SYR IVF ONE (18:00)
[2018-07-28 18:12] LABS: ALBUMIN 3.8 g/dL (3.4-5.0); ANION GAP 8 mmol/L (5-15); CALCIUM 8.7 mg/dL (8.5-10.1); CHLORIDE 105 mmol/L (98-107)
[2018-07-28 18:16] LABS: ALANINE AMINOTRANSFERASE 17 U/L (12-78); ALKALINE PHOSPHATASE 62 U/L (45-117); BILIRUBIN,TOTAL 0.6 mg/dL (0.2-1.0); CREATININE 1.56 mg/dL (0.7-1.3); TOTAL PROTEIN 7.3 g/dL (6.4-8.2)
[2018-07-28] MEDS ORDERED: BISACODYL 10 MG SUPP PR PRN (19:00)
[2018-07-28] MEDS ORDERED: ONDANSETRON ODT 4 MG PO PRN (19:00)
[2018-07-28] MEDS ORDERED: ACETAMINOPHEN 325 MG TABLET PO PRN (19:00)
[2018-07-28] MEDS ORDERED: POLYETHYLENE GLYCOL 17 GM PACKET PO PRN (19:00)
[2018-07-28] MEDS: SUCRALFATE 1 GM/10 ML UDC PO SCH ×3 (19:57→20:46)
[2018-07-28] MEDS: PANTOPROZOLE 40MG TABLET PO SCH ×2 (19:57→20:44)
[2018-07-28] MEDS: FERROUS SULFATE 325 MG TABLET PO SCH ×2 (19:57→20:44)
[2018-07-28] MEDS: SODIUM CHLORIDE FLUSH 10ML SYR IVF SCH (20:47)
[2018-07-29 00:13] VITALS: BP 136/85
[2018-07-29 03:21] VITALS: BP 134/76
[2018-07-29 05:32] LABS: MEAN CORPUSCULAR HEMOGLOBIN 27.1 pg (27.5-34.5); MEAN CORPUSCULAR HGB CONC 33.2 g/dL (33.2-36.2); MEAN CORPUSCULAR VOLUME 81.8 fL (81-97); MEAN PLATELET VOLUME 10.2 fL (7.4-10.4); PLATELET COUNT 265 x10^3/uL (130-400); RED BLOOD COUNT 4.14 x10^6/uL (4.38-5.82)
[2018-07-29 05:37] LABS: CHLORIDE 107 mmol/L (98-107)
[2018-07-29 05:51] LABS: ALANINE AMINOTRANSFERASE 16 U/L (12-78); ALBUMIN 3.4 g/dL (3.4-5.0); ALKALINE PHOSPHATASE 50 U/L (45-117); ANION GAP 10 mmol/L (5-15); BILIRUBIN,TOTAL 0.5 mg/dL (0.2-1.0); CREATININE 1.51 mg/dL (0.7-1.3); TOTAL PROTEIN 6.5 g/dL (6.4-8.2)
[2018-07-29 06:03] LABS: BASOPHILS # (AUTO) 0.04 x10^3/uL (0-0.1); BASOPHILS % (AUTO) 1 % (0-1); EOSINOPHILS # (AUTO) 0.34 x10^3/uL (0-0.4); EOSINOPHILS % (AUTO) 5 % (1-7); LYMPHOCYTES % (AUTO) 32 % (22-44); MD SCAN; MONOCYTES # (AUTO) 0.64 x10^3/uL (0.2-0.8); MONOCYTES % (AUTO) 8 % (2-9); NEUTROPHILS # (AUTO) 4.15 x10^3/uL (1.8-6.8); NEUTROPHILS % (AUTO) 55 % (42-75)
[2018-07-29] MEDS: SUCRALFATE 1 GM/10 ML UDC PO SCH ×4 (06:06→21:31)
[2018-07-29 07:05] VITALS: BP 127/81
[2018-07-29] MEDS: AMLODIPINE 5 MG TABLET PO SCH (08:55)
[2018-07-29] MEDS: LISINOPRIL 20 MG TABLET PO SCH (08:55)
[2018-07-29] MEDS: FERROUS SULFATE 325 MG TABLET PO SCH ×2 (08:55→16:57)
[2018-07-29] MEDS: PANTOPROZOLE 40MG TABLET PO SCH ×2 (08:55→18:29)
[2018-07-29] MEDS: SENNA/DOCUSATE TABLET PO SCH (08:56)
[2018-07-29] MEDS: SODIUM CHLORIDE FLUSH 10ML SYR IVF SCH ×2 (08:56→21:32)
[2018-07-29] MEDS ORDERED: SODIUM CHLORIDE 0.9% 1,000ML IVBOLUS ONE (10:00)
[2018-07-29 14:36] VITALS: BP 117/76
[2018-07-29 19:17] VITALS: BP 107/67
[2018-07-30 00:24] VITALS: BP 112/67
[2018-07-30] MEDS: SUCRALFATE 1 GM/10 ML UDC PO SCH ×2 (05:15→11:47)
[2018-07-30] MEDS: AMLODIPINE 5 MG TABLET PO SCH (08:13)
[2018-07-30] MEDS: SODIUM CHLORIDE FLUSH 10ML SYR IVF SCH (08:13)
[2018-07-30] MEDS: PANTOPROZOLE 40MG TABLET PO SCH (08:13)
[2018-07-30] MEDS: FERROUS SULFATE 325 MG TABLET PO SCH (08:13)
[2018-07-30] MEDS: LISINOPRIL 20 MG TABLET PO SCH (08:13)
[2018-07-30] MEDS: SENNA/DOCUSATE TABLET PO SCH (08:13)
[2018-07-30 08:37] VITALS: BP 137/81
[2018-07-30 12:40] VITALS: BP 123/76
[2018-07-30] MEDS ORDERED: SUCR1ORA5 PO (13:46)
[2018-07-30 14:11] LABS: BASOPHILS # (AUTO) 0.04 x10^3/uL (0-0.1); BASOPHILS % (AUTO) 1 % (0-1); EOSINOPHILS # (AUTO) 0.41 x10^3/uL (0-0.4); EOSINOPHILS % (AUTO) 5 % (1-7); LYMPHOCYTES # (AUTO) 2.69 x10^3/uL (1-3.4); LYMPHOCYTES % (AUTO) 31 % (22-44); MD NO; MEAN CORPUSCULAR HEMOGLOBIN 26.9 pg (27.5-34.5); MEAN CORPUSCULAR HGB CONC 32.7 g/dL (33.2-36.2); MEAN CORPUSCULAR VOLUME 82.1 fL (81-97); MEAN PLATELET VOLUME 9.6 fL (7.4-10.4); MONOCYTES # (AUTO) 0.65 x10^3/uL (0.2-0.8); MONOCYTES % (AUTO) 7 % (2-9); NEUTROPHILS # (AUTO) 4.97 x10^3/uL (1.8-6.8); NEUTROPHILS % (AUTO) 57 % (42-75); PLATELET COUNT 306 x10^3/uL (130-400); RED BLOOD COUNT 4.36 x10^6/uL (4.38-5.82); RED CELL DISTRIBUTION WIDTH 21.4 % (9.4-14.8)
[2018-07-30 14:22] LABS: CHLORIDE 112 mmol/L (98-107)
[2018-07-30 14:23] LABS: ANION GAP 9 mmol/L (5-15); CALCIUM 7.9 mg/dL (8.5-10.1); CREATININE 1.39 mg/dL (0.7-1.3)
== END 2018-07-30 17:00 | disposition home health service (06) | DRG 384 ==
LOC: ED 13:51 → EDIP 18:03 → 3NE 18:30
PROVIDERS: ADMIT Internal Medicine; ATTEND Internal Medicine
DX: K26.9 Duodenal ulcer, unspecified as acute or chronic, without hemorrhage or perforation (principal); N17.9 Acute kidney failure, unspecified; I12.9 Hypertensive chronic kidney disease with stage 1 through stage 4 chronic kidney disease, or unspecified chronic kidney disease; K21.9 Gastro-esophageal reflux disease without esophagitis; N18.9 Chronic kidney disease, unspecified; D50.9 Iron deficiency anemia, unspecified; F02.80 Dementia in other diseases classified elsewhere, unspecified severity, without behavioral disturbance, psychotic disturbance, mood disturbance, and anxiety; F12.90 Cannabis use, unspecified, uncomplicated; G30.1 Alzheimer's disease with late onset; G89.29 Other chronic pain; Z87.11 Personal history of peptic ulcer disease; Z91.14 Patient's other noncompliance with medication regimen; Z90.49 Acquired absence of other specified parts of digestive tract
CPT/HCPCS: 36415; 80048; 80053; 85025; 93005; 96374; 99285; G0378; 92523-GN; C9113; J7030

== ENCOUNTER 2018-08-07 10:35 | Emergency (ER) | payer MEDICARE, MEDICAID ==
[~2018-08-07] VITALS: Ht 170.2 cm; Wt 89.5 kg
[2018-08-07] MEDS ORDERED: MAALOX/HYOSCYAMINE/LIDOCAINE 45 ML BTL PO ONE (11:30)
[2018-08-07] MEDS ORDERED: ACETAMINOPHEN 325 MG TABLET PO ONE (11:30)
[2018-08-07 11:33] LABS: BASOPHILS # (AUTO) 0.03 x10^3/uL (0-0.1); BASOPHILS % (AUTO) 0 % (0-1); EOSINOPHILS # (AUTO) 0.14 x10^3/uL (0-0.4); EOSINOPHILS % (AUTO) 2 % (1-7); LYMPHOCYTES # (AUTO) 2.19 x10^3/uL (1-3.4); LYMPHOCYTES % (AUTO) 25 % (22-44); MD NO; MEAN CORPUSCULAR HEMOGLOBIN 26.1 pg (27.5-34.5); MEAN CORPUSCULAR HGB CONC 31.8 g/dL (33.2-36.2); MEAN CORPUSCULAR VOLUME 81.9 fL (81-97); MEAN PLATELET VOLUME 9.6 fL (7.4-10.4); MONOCYTES % (AUTO) 7 % (2-9); NEUTROPHILS # (AUTO) 5.84 x10^3/uL (1.8-6.8); NEUTROPHILS % (AUTO) 66 % (42-75); PLATELET COUNT 288 x10^3/uL (130-400); RED BLOOD COUNT 4.44 x10^6/uL (4.38-5.82)
[2018-08-07 11:45] LABS: ALANINE AMINOTRANSFERASE 16 U/L (12-78); ALBUMIN 3.7 g/dL (3.4-5.0); ANION GAP 4 mmol/L (5-15); CALCIUM 8.8 mg/dL (8.5-10.1); CHLORIDE 111 mmol/L (98-107); CREATININE 1.27 mg/dL (0.7-1.3)
[2018-08-07 11:47] LABS: ALKALINE PHOSPHATASE 61 U/L (45-117); BILIRUBIN,TOTAL 0.5 mg/dL (0.2-1.0); TOTAL PROTEIN 7.3 g/dL (6.4-8.2)
[2018-08-07] MEDS ORDERED: MAALOX/HYOSCYAMINE/LIDOCAINE 45 ML BTL ONE (11:52)
[2018-08-07] MEDS ORDERED: ACETAMINOPHEN 325 MG TABLET ONE (11:52)
[2018-08-07 12:39] VITALS: BP 150/98
== END 2018-08-07 12:45 | disposition home or self-care (01) ==
LOC: ED 11:37
DX: K29.00 Acute gastritis without bleeding (principal); I10 Essential (primary) hypertension; K21.9 Gastro-esophageal reflux disease without esophagitis; Z87.891 Personal history of nicotine dependence
CPT/HCPCS: 36415; 80053; 83690; 85025; 99284

== ENCOUNTER 2019-04-24 15:43 | Emergency (ER) | payer MEDICARE, MEDICAID ==
[~2019-04-24] VITALS: Ht 170.2 cm; Wt 92.9 kg
[~2019-04-24 15:43] MED LIST changes: +AMLO-150 PO; -AMLO5TAB7 PO
[2019-04-24] MEDS ORDERED: SODIUM CHLORIDE FLUSH 10ML SYR IVF ONE (16:00)
[2019-04-24 16:20] LABS: BASOPHILS # (AUTO) 0.02 x10^3/uL (0-0.1); BASOPHILS % (AUTO) 0 % (0-1); EOSINOPHILS # (AUTO) 0.16 x10^3/uL (0-0.4); EOSINOPHILS % (AUTO) 2 % (1-7); LYMPHOCYTES # (AUTO) 1.74 x10^3/uL (1-3.4); LYMPHOCYTES % (AUTO) 21 % (22-44); MD NO; MEAN CORPUSCULAR HEMOGLOBIN 30.3 pg (27.5-34.5); MEAN CORPUSCULAR HGB CONC 33.2 g/dL (33.2-36.2); MEAN CORPUSCULAR VOLUME 91.2 fL (81-97); MEAN PLATELET VOLUME 9.5 fL (7.4-10.4); MONOCYTES # (AUTO) 0.43 x10^3/uL (0.2-0.8); MONOCYTES % (AUTO) 5 % (2-9); NEUTROPHILS # (AUTO) 6.17 x10^3/uL (1.8-6.8); NEUTROPHILS % (AUTO) 72 % (42-75); PLATELET COUNT 260 x10^3/uL (130-400); RED BLOOD COUNT 4.69 x10^6/uL (4.38-5.82); RED CELL DISTRIBUTION WIDTH 15.7 % (9.4-14.8)
[2019-04-24 16:30] LABS: ALANINE AMINOTRANSFERASE 19 U/L (12-78); ALBUMIN 3.5 g/dL (3.4-5.0); ANION GAP 8 mmol/L (5-15); CALCIUM 8.3 mg/dL (8.5-10.1); CHLORIDE 111 mmol/L (98-107); CREATININE 1.32 mg/dL (0.7-1.3)
[2019-04-24] MEDS ORDERED: FAMOTIDINE 20 MG TABLET PO ONE (16:30)
[2019-04-24] MEDS ORDERED: MAALOX/HYOSCYAMINE/LIDOCAINE 45 ML BTL PO ONE (16:30)
--- NOTE | 2019-04-24 16:30 | NUR ---
PT WITH C/O ABD PAIN EPIGASTRIC IN REGION, STATES "I DONT KNOW HOW LONG ITS BEEN GOING ON, WHOS COUNTING" "MAN IT HURTS " PT NOT PARTICIPATING IN NUMBER PAIN SCALE. PT DENIES CP, SOB, TRAUMA.
[2019-04-24 16:33] LABS: ALKALINE PHOSPHATASE 63 U/L (45-117); BILIRUBIN,TOTAL 0.6 mg/dL (0.2-1.0)
--- NOTE | 2019-04-24 16:57 | NUR ---
PIV INITIATED, ATTEMPTED TO OBTAIN UA, PT STATES "I CANT RIGHT NOW IM DRY" PT TO CT
[2019-04-24 17:13] LABS: TROPONIN I < 0.015 ng/mL (0.000-0.045)
[2019-04-24] MEDS ORDERED: MAALOX/HYOSCYAMINE/LIDOCAINE 45 ML BTL ONE (17:19)
[2019-04-24] MEDS ORDERED: FAMOTIDINE 20 MG TABLET ONE (17:19)
--- NOTE | 2019-04-24 18:39 | NUR ---
PT AMBULATED TO BR WITH STEADY GAIT. PT TO DISCHARGE HOME.
--- NOTE | 2019-04-24 18:57 | NUR ---
PT GIVEN DISCHARGE INSTRUCTIONS, UNDERSTANDING STATED. PT GIVEN CARE CHEST RESOURCES, VERIFIED THAT PT ABLE TO FILL RX. PT WITH ALL BELONGINGS ON DISCHARGE, PT GIVEN TAXI VOUCHER
[2019-04-24 19:14] VITALS: BP 140/88
== END 2019-04-24 19:17 | disposition home or self-care (01) ==
LOC: ED 19:08
DX: K25.7 Chronic gastric ulcer without hemorrhage or perforation (principal); G89.29 Other chronic pain; R10.13 Epigastric pain; K21.9 Gastro-esophageal reflux disease without esophagitis; I10 Essential (primary) hypertension
CPT/HCPCS: 36415; 74022; 80053; 83690; 84484; 85025; 93005; 99284